=== PATIENT | male | born 1950 | race Caucasian/White ===

== ENCOUNTER → 2016-06-04 | Outpatient (CLI) | payer BC, MEDICARE ==
--- NOTE | 2016-06-04 08:16 | DI ---
Indication: ITS.REASON: R10.11 RUQ ABDOMEN PAIN PROCEDURE: US GALLBLADDER: Encounter: Initial Comparison: None Technique: Grayscale and color Doppler sonographic imaging of the right upper quadrant of the abdomen was performed. Findings: Hepatic parenchyma is homogeneous without evidence for focal mass. The gallbladder is normal. There is no wall thickening, pericholecystic fluid, sonographic Scott's sign or cholelithiasis. Both the intra and extrahepatic biliary system are of normal caliber with the common duct measuring 5 mm in dimension. Visualized portions of the head and body of the pancreas are unremarkable. The right kidney is present without collecting system dilatation. The right kidney measures 11.7 cm in length. Impression: Normal right upper quadrant sonogram. .
== END ==
LOC: IMA 06:22
PROVIDERS: ATTEND Surgery
DX: R10.11 Right upper quadrant pain (principal)

== ENCOUNTER → 2016-06-10 | Outpatient (CLI) | payer BC, MEDICARE ==
[~2016-06-10] MED LIST: SALINE FLUSH 10ml SYRINGE ONE; SINCALIDE 5 MCG/VIAL IJ ONE; SODIUM CHLORIDE (Bacteriostatic) 30ml VIAL ONE
--- NOTE | 2016-06-10 08:41 | DI ---
EXAM: NM HEPATOBIL/EF LOCATION OF DICTATION: [facility] HISTORY: ITS.REASON: R10.11 RUQ ABD PAIN COMPARISON: None available. TECHNIQUE: After administration of approximately 6.0 mCi Tc99m Choletec, sequential anterior images of the abdomen were obtained. After visualization of the gallbladder, a region of interest was drawn around the gallbladder and approximately 2.4 mcg CCK was administered with sequential anterior images of the abdomen obtained. A time-activity curve was plotted and a gallbladder ejection fraction was calculated. Normal ejection fractions are estimated to be approximately greater than 35%. FINDINGS: There is normal radiotracer washout from the blood pool and uptake within the hepatocytes. There is normal excretion of radiotracer into the intrahepatic biliary ducts. The radiotracer extends to the extrahepatic biliary ducts and gallbladder in normal fashion. There is normal uptake demonstrated within the small bowel loops. The gallbladder ejection fraction is normal measuring 89%. IMPRESSION: 1. No evidence for acute cholecystitis. 2. The gallbladder ejection fraction is normal measuring 89%.. .
== END ==
LOC: IMA 06:42
PROVIDERS: ATTEND Surgery
DX: R10.11 Right upper quadrant pain (principal)
CPT/HCPCS: 78227; A9537; J2805

== ENCOUNTER → 2016-06-20 | Outpatient (CLI) | payer BC, MEDICARE ==
--- NOTE | 2016-06-20 13:45 | DI ---
Indication: ITS.REASON: R07.89 OTHER CHEST PAIN PROCEDURE: CT CHEST W/O CONTRAST: Encounter: Initial Comparison: None Technique: Axial CT images were performed through the chest without intravenous contrast. Coronal and sagittal two-dimensional reformats. Automated Exposure Control and Iterative Reconstruction dose reducing techniques were utilized. Findings: Mild paraseptal emphysema in the apices. Small area of subpleural scarring in the inferior right middle lobe on image #47. The lungs are otherwise clear. No consolidative pneumonia, pleural effusion or pneumothorax. Small 5 mm pulmonary nodule in the left lower lobe on image #42 which does not require imaging follow-up. The central airways are patent. No bronchial wall thickening. Thyroid gland is grossly normal. No axillary or mediastinal adenopathy. Heart size is normal. Three vessel coronary artery disease. No pericardial effusion. The upper abdomen shows no acute findings. 2.8 cm superior pole left renal cyst. Bone windows show age-appropriate mild degenerative changes in the spine without focal lytic or blastic osseous lesion. No acute or subacute healing rib fracture identified. Impression: 1. No acute disease process seen. No clear etiology for the patient's right-sided chest pain. 2. Three-vessel coronary artery disease, slightly advanced for the patient's age. Recommend consideration of cardiology evaluation. .
== END ==
LOC: IMA 12:19
PROVIDERS: ATTEND Family Medicine
DX: I25.10 Atherosclerotic heart disease of native coronary artery without angina pectoris (principal); R07.89 Other chest pain